=== PATIENT | male | born 1945 | race Caucasian/White ===

== ENCOUNTER 2020-08-01 14:13 | Outpatient (CLI) | payer MEDICARE | END 2020-08-01 14:14 | disposition home or self-care (01) | LOC: BICRAD 14:13 | PROVIDERS: ATTEND Physician Assistant Medical | DX: Z11.1 Encounter for screening for respiratory tuberculosis (principal) | CPT/HCPCS: 71046 ==

== ENCOUNTER 2020-08-31 20:02 | Observation (INO) | payer MEDICARE ==
[2020-08-31 20:54] LABS: #Eosinphils 0.1 thou/uL (0.0-0.7); #Lymphocytes 0.8 thou/uL (1.20-3.40); #Monocytes 0.7 thou/uL (0.11-0.59); #Neutrophils 11.8 thou/uL (1.40-6.50); %Basophils 0.3 % (0.0-1.0); %Eosinophils 0.4 % (0.0-10.0); %Lymphocytes 5.7 % (21.0-51.0); %Monocytes 5.3 % (0.0-10.0); %Neutrophils 88.4 % (42.0-75.0); Hemoglobin 10.7 g/dL (14.0-18.0); Mean Corpuscular HGB CONC 35.3 g/dL (32.0-36.0); Mean Corpuscular Hemoglobin 33.5 pg (27.0-31.0); Mean Corpuscular Volume 94.8 fL (78.0-98.0); Mean Platelet Volume 7.2 fL (7.4-10.4); Platelet Count 224 thou/uL (130-400); RBC Distribution Width 11.6 % (11.5-14.5); Red Blood Cell (RBC) Count 3.19 mill/uL (4.70-6.10); White Blood Cell (WBC) Count 13.4 thou/uL (4.8-10.8)
[2020-08-31 21:06] LABS: INR-International Normal Ratio 1.1; PTT 26.9 sec (22.9-36.1)
[2020-08-31 21:19] LABS: ALT (SGPT) 11 U/L (8-55); AST (SGOT) 13 U/L (5-34); Albumin 3.5 g/dL (3.4-4.8); Alkaline Phosphatase 44 U/L (40-110); BUN (Urea Nitrogen) 12 mg/dL (8.4-25.7); Bilirubin, Total 0.4 mg/dL (0.2-1.2); Calc. Creatinine Clearance 0 mL/min (70-130); Calcium 8.6 mg/dL (7.8-10.44); Chloride 106 mmol/L (98-107); Globulin 2.5 g/dL (2.4-3.5); Glucose 104 mg/dL (83-110); Iron 68 ug/dL (65-175); Iron Binding Capacity, Total 243 mcg/dL (261-462); Sodium 138 mmol/L (136-145)
[2020-08-31 21:21] LABS: Carbon Dioxide Less than 8 mmol/L (23-31)
[2020-08-31] MEDS ORDERED: Pantoprazole 40 MG VIAL ONE (21:22)
[2020-08-31] MEDS ORDERED: GoLYTELY 4,000 ml Bottle PO SCH ×2 (22:15→23:00)
[2020-08-31] MEDS ORDERED: Ondansetron PF 4 MG/2 ML Vial IVP PRN (22:36)
[2020-08-31] MEDS ORDERED: Lorazepam 2 MG/ML VIAL SLOW IVP PRN (22:50)
[2020-08-31 23:23] LABS: Anion Gap 18 mmol/L (10-20); BUN (Urea Nitrogen) 10 mg/dL (8.4-25.7); Calc. Creatinine Clearance 0 mL/min (70-130); Calcium 8.3 mg/dL (7.8-10.44); Carbon Dioxide 17 mmol/L (23-31); Chloride 109 mmol/L (98-107); Glucose 93 mg/dL (83-110); Potassium 4.1 mmol/L (3.5-5.1); Sodium 140 mmol/L (136-145)
[2020-09-01 00:19] VITALS: BMI 25.0
[2020-09-01 01:07] LABS: Hemoglobin 9.7 g/dL (14.0-18.0)
[2020-09-01] MEDS: Acetaminophen 325 MG TAB PO PRN ×2 (01:13→21:48)
[2020-09-01 01:45] LABS: Bacteria/HPF None Seen HPF (None Seen); Bilirubin Negative (Negative); Blood, Urine Negative (Negative); Clarity Clear (Clear); Glucose, Urine (Dipstick) Normal (Negative); Ketone, Urine Negative (Negative); Leukocyte Negative Leu/uL (Negative); Nitrite Negative (Negative); Protein, Urine (Dipstick) Negative (Neg-Trace); RBC/HPF 0-3 HPF (0-3); Specific Gravity, Urine 1.008 (1.002-1.036); Squamous Epithelial None Seen HPF (0-3); Urobilinogen Normal mg/dL (Less than 2); WBC/HPF 0-3 HPF (0-3)
[2020-09-01 01:47] LABS: Urine Culture Reflex No No
[2020-09-01] MEDS ORDERED: traMADol HCl 50 MG TAB PO SCH (04:00)
[2020-09-01 05:05] LABS: #Eosinphils 0.1 thou/uL (0.0-0.7); #Lymphocytes 1.5 thou/uL (1.20-3.40); #Monocytes 0.7 thou/uL (0.11-0.59); #Neutrophils 5.4 thou/uL (1.40-6.50); %Basophils 0.6 % (0.0-1.0); %Eosinophils 1.3 % (0.0-10.0); %Neutrophils 70.1 % (42.0-75.0); Hemoglobin 9.4 g/dL (14.0-18.0); Mean Corpuscular HGB CONC 35.8 g/dL (32.0-36.0); Mean Corpuscular Hemoglobin 33.9 pg (27.0-31.0); Mean Corpuscular Volume 94.7 fL (78.0-98.0); Mean Platelet Volume 7.3 fL (7.4-10.4); Platelet Count 195 thou/uL (130-400); RBC Distribution Width 11.7 % (11.5-14.5); Red Blood Cell (RBC) Count 2.77 mill/uL (4.70-6.10); White Blood Cell (WBC) Count 7.7 thou/uL (4.8-10.8)
[2020-09-01 05:25] LABS: Anion Gap 12 mmol/L (10-20); BUN (Urea Nitrogen) 9 mg/dL (8.4-25.7); Calc. Creatinine Clearance 88 mL/min (70-130); Calcium 8.3 mg/dL (7.8-10.44); Carbon Dioxide 23 mmol/L (23-31); Chloride 109 mmol/L (98-107); Glucose 91 mg/dL (83-110); Sodium 140 mmol/L (136-145)
[2020-09-01] MEDS: Atenolol 25 MG TAB PO SCH (08:20)
[2020-09-01] MEDS: Atorvastatin Calcium 40 MG TAB PO SCH (08:20)
[2020-09-01] MEDS: Tamsulosin HCl 0.4 MG CAP PO SCH (08:20)
[2020-09-01] MEDS: Pantoprazole 40 MG VIAL IVP SCH (08:21)
[2020-09-01] MEDS: Folic Acid 1 MG TAB PO SCH (08:21)
[2020-09-01] MEDS: azaTHIOprine 50 MG TAB PO SCH (08:21)
[2020-09-01] MEDS: Mesalamine DR 400 mg Capsule PO SCH ×3 (10:38→20:21)
[2020-09-01] MEDS ORDERED: PROPOFOL 200 MG/20 ML VIAL ONE (12:16)
[2020-09-01] MEDS ORDERED: Promethazine HCl 25 MG/ML VIAL IM PRN (13:02)
[2020-09-01] MEDS ORDERED: Promethazine HCl 25 MG/ML VIAL IVPB PRN (13:02)
[2020-09-01] MEDS ORDERED: Ondansetron HCl/PF 4 MG/2 ML Vial IVP PRN (13:02)
[2020-09-01] MEDS ORDERED: Lorazepam 2 MG/ML VIAL SLOW IVP PRN (17:23)
[2020-09-01 18:23] LABS: Hemoglobin 9.4 g/dL (14.0-18.0)
[2020-09-02 05:20] LABS: #Eosinphils 0.2 thou/uL (0.0-0.7); #Lymphocytes 1.3 thou/uL (1.20-3.40); #Monocytes 0.6 thou/uL (0.11-0.59); #Neutrophils 3.2 thou/uL (1.40-6.50); %Basophils 0.6 % (0.0-1.0); %Eosinophils 3.7 % (0.0-10.0); %Lymphocytes 24.3 % (21.0-51.0); %Monocytes 11.9 % (0.0-10.0); %Neutrophils 59.4 % (42.0-75.0); Hemoglobin 8.5 g/dL (14.0-18.0); Mean Corpuscular HGB CONC 34.7 g/dL (32.0-36.0); Mean Corpuscular Volume 95.1 fL (78.0-98.0); Mean Platelet Volume 7.3 fL (7.4-10.4); Platelet Count 190 thou/uL (130-400); RBC Distribution Width 11.7 % (11.5-14.5); Red Blood Cell (RBC) Count 2.58 mill/uL (4.70-6.10); White Blood Cell (WBC) Count 5.4 thou/uL (4.8-10.8)
[2020-09-02 05:39] LABS: Anion Gap 9 mmol/L (10-20); BUN (Urea Nitrogen) 6 mg/dL (8.4-25.7); Calc. Creatinine Clearance 93 mL/min (70-130); Calcium 8.4 mg/dL (7.8-10.44); Carbon Dioxide 25 mmol/L (23-31); Chloride 107 mmol/L (98-107); Glucose 95 mg/dL (83-110); Sodium 137 mmol/L (136-145)
[2020-09-02] MEDS: Acetaminophen 325 MG TAB PO PRN (06:16)
[2020-09-02 07:48] VITALS: TEMP 98
[2020-09-02] MEDS: Atenolol 25 MG TAB PO SCH (08:00)
[2020-09-02] MEDS: azaTHIOprine 50 MG TAB PO SCH (08:00)
[2020-09-02] MEDS: Mesalamine DR 400 mg Capsule PO SCH (08:00)
[2020-09-02] MEDS: Folic Acid 1 MG TAB PO SCH (08:00)
[2020-09-02] MEDS: Tamsulosin HCl 0.4 MG CAP PO SCH (08:00)
[2020-09-02] MEDS: Atorvastatin Calcium 40 MG TAB PO SCH (08:00)
[2020-09-02] MEDS: Pantoprazole 40 MG VIAL IVP SCH (08:01)
[2020-09-02 11:31] VITALS: BP 132/70
== END 2020-09-02 14:35 | disposition home or self-care (01) ==
LOC: ERS 20:02 → 2SW 22:36
PROVIDERS: ADMIT Internal Medicine; ATTEND Internal Medicine
PROC: 0W3P8ZZ Control Bleeding in Gastrointestinal Tract, Via Natural or Artificial Opening Endoscopic (ICD-10-PCS; principal; 2020-09-01)
DX: K91.840 Postprocedural hemorrhage of a digestive system organ or structure following a digestive system procedure (principal); D62 Acute posthemorrhagic anemia; K51.90 Ulcerative colitis, unspecified, without complications; I25.10 Atherosclerotic heart disease of native coronary artery without angina pectoris; I25.2 Old myocardial infarction; I10 Essential (primary) hypertension; Z95.5 Presence of coronary angioplasty implant and graft; D72.829 Elevated white blood cell count, unspecified; E87.2 Acidosis; F10.10 Alcohol abuse, uncomplicated; Z86.010 Personal history of colon polyps; Z79.899 Other long term (current) drug therapy
CPT/HCPCS: 36415; 80048; 80053; 81001; 82274; 82728; 83540; 83550; 85025; 85610; 85730; 86850; 86900; 86901; 96374; 96375; 96376; C9113; G0378; J2704; J3411; J7500

== ENCOUNTER 2020-11-19 10:09 | Day surgery (SDC) | payer MEDICARE ==
[~2020-11-19 10:09] MED LIST: Acetaminophen 500 MG TAB PO PRN; Acetaminophen 500 MG TAB PO SCH; Sodium Chloride 0.9% 1,000 ML IV SCH; Vedolizumab 300 MG in Sodium Chloride 0.9% 250 ML 250 ML IVPB SCH
[2020-11-19] MEDS ORDERED: Sodium Chloride 0.9% 20 ML ONE (10:17)
[2020-11-19 10:53] VITALS: BP 190/85
== END 2020-11-19 11:40 | disposition home or self-care (01) ==
LOC: ONC/OP 10:09
PROVIDERS: ATTEND Internal Medicine Hematology & Oncology
DX: K51.90 Ulcerative colitis, unspecified, without complications (principal)
CPT/HCPCS: 96413; J3380; J7050

== ENCOUNTER 2021-01-14 10:11 | Day surgery (SDC) | payer MEDICARE ==
[~2021-01-14 10:11] MED LIST changes: +Sodium Chloride 0.9% 20 ML ONE
[2021-01-14 10:27] VITALS: BP 161/67; TEMP 98.5
== END 2021-01-14 11:33 | disposition home or self-care (01) ==
LOC: ONC/OP 10:11
PROVIDERS: ATTEND Internal Medicine
DX: K51.90 Ulcerative colitis, unspecified, without complications (principal)
CPT/HCPCS: 96413; J3380; J7050

== ENCOUNTER 2021-03-18 10:12 | Day surgery (SDC) | payer MEDICARE, SELFPAY ==
[~2021-03-18 10:12] MED LIST changes: -Acetaminophen 500 MG TAB PO SCH; -Sodium Chloride 0.9% 1,000 ML IV SCH; -Sodium Chloride 0.9% 20 ML ONE
[2021-03-18] MEDS ORDERED: Sodium Chloride 0.9% 10 ML ONE (10:19)
[2021-03-18 10:34] VITALS: BP 144/65; TEMP 98
== END 2021-03-18 12:18 | disposition home or self-care (01) ==
LOC: ONC/OP 10:12
PROVIDERS: ATTEND Internal Medicine
DX: K51.90 Ulcerative colitis, unspecified, without complications (principal)
CPT/HCPCS: 96413; J3380; J7050

== ENCOUNTER 2021-05-12 10:57 | Day surgery (SDC) | payer MEDICARE ==
[~2021-05-12 10:57] MED LIST changes: -Acetaminophen 500 MG TAB PO PRN
[2021-05-12] MEDS ORDERED: Acetaminophen 500 MG TAB PO SCH (11:15)
[2021-05-12 11:25] VITALS: BP 175/74; TEMP 97.8
== END 2021-05-12 13:28 | disposition home or self-care (01) ==
LOC: ONC/OP 10:57
PROVIDERS: ATTEND Internal Medicine
DX: K51.50 Left sided colitis without complications (principal)
CPT/HCPCS: 96413; J3380; J7050

== ENCOUNTER 2021-07-07 10:50 | Day surgery (SDC) | payer MEDICARE ==
[~2021-07-07 10:50] MED LIST changes: +Acetaminophen 500 MG TAB PO SCH
[2021-07-07 11:16] VITALS: BP 137/64
== END 2021-07-07 12:27 | disposition home or self-care (01) ==
LOC: ONC/OP 10:50
PROVIDERS: ATTEND Internal Medicine
DX: K51.50 Left sided colitis without complications (principal)
CPT/HCPCS: 96413

== ENCOUNTER → 2021-09-01 | Day surgery (SDC) | payer MEDICARE ==
[2021-09-01 11:14] VITALS: BP 135/64; TEMP 98.6
== END | disposition home or self-care (01) ==
LOC: ONC/OP 10:53
PROVIDERS: ATTEND Internal Medicine
DX: K51.90 Ulcerative colitis, unspecified, without complications (principal)
CPT/HCPCS: 96413

== ENCOUNTER 2021-10-27 10:52 | Day surgery (SDC) | payer MEDICARE ==
[2021-10-27] MEDS ORDERED: Acetaminophen 500 MG TAB ONE ×2 (11:33)
[2021-10-27 12:00] VITALS: BP 174/78; TEMP 98.2
[2021-10-27] MEDS ORDERED: Vedolizumab 300 MG in Sodium Chloride 0.9% 250 ML 250 ML IVPB SCH (12:00)
== END 2021-10-27 13:32 | disposition home or self-care (01) ==
LOC: ONC/OP 10:52
PROVIDERS: ATTEND Internal Medicine
DX: K51.90 Ulcerative colitis, unspecified, without complications (principal)
CPT/HCPCS: 96413; J3380; J7050

== ENCOUNTER 2024-11-20 11:35 | Outpatient (CLI) | payer MEDICARE | END 2024-11-20 11:36 | disposition home or self-care (01) | LOC: BICRAD 11:35 | PROVIDERS: ATTEND Internal Medicine | DX: K51.50 Left sided colitis without complications (principal); R76.12 Nonspecific reaction to cell mediated immunity measurement of gamma interferon antigen response without active tuberculosis | CPT/HCPCS: 71046 ==